=== PATIENT | female | born 1985 | race Two or more races ===

== ENCOUNTER 2020-12-06 15:00 | Outpatient (RCR) | payer MEDICAID, SELFPAY | END 2021-01-17 13:45 | disposition home or self-care (01) | LOC: HO.PT 15:00 | PROVIDERS: PCP Registered Nurse; Visit Provider Nurse Practitioner Primary Care | DX: M54.5 Low back pain (principal) | CPT/HCPCS: 97110; 97140; 97161 ==

== ENCOUNTER 2020-12-24 12:24 | Emergency (ER) | payer OTHER, MEDICAID, SELFPAY ==
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
[2020-12-24 14:21] VITALS: BP 108/51; PULSE 76; RESP 18; TEMP 37; O2SAT 100; BMI 17.6
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
== END 2020-12-24 16:41 | disposition home or self-care (01) ==
PROVIDERS: Emergency Provider Emergency Medicine; PCP Registered Nurse
DX: S29.011A Strain of muscle and tendon of front wall of thorax, initial encounter (principal); S46.911A Strain of unspecified muscle, fascia and tendon at shoulder and upper arm level, right arm, initial encounter; S39.012A Strain of muscle, fascia and tendon of lower back, initial encounter; V43.52XA Car driver injured in collision with other type car in traffic accident, initial encounter; Y93.89 Activity, other specified; Y92.414 Local residential or business street as the place of occurrence of the external cause; Y99.9 Unspecified external cause status
CPT/HCPCS: 71101; 72110; 73030; 99283

== ENCOUNTER 2021-03-01 09:34 | Outpatient (REF) | payer MEDICAID, SELFPAY | END 2021-03-01 09:35 | disposition home or self-care (01) | LOC: HO.LAB 09:34 | PROVIDERS: Visit Provider Internal Medicine | DX: Z20.822 Contact with and (suspected) exposure to COVID-19 (principal) | CPT/HCPCS: C9803; U0003; U0005 ==

== ENCOUNTER 2021-03-11 09:18 | Outpatient (REF) | payer MEDICAID, SELFPAY | END 2021-03-11 09:19 | disposition home or self-care (01) | LOC: HO.LAB 09:18 | PROVIDERS: Visit Provider Internal Medicine | DX: Z20.822 Contact with and (suspected) exposure to COVID-19 (principal) | CPT/HCPCS: C9803; U0003; U0005 ==

== ENCOUNTER 2021-03-19 08:39 | Outpatient (REF) | payer MEDICAID, SELFPAY ==
[2021-03-19 09:07] LABS: COVID-19 Test Negative (Negative); IDNOW Serial# 55D5AD1C
== END 2021-03-19 08:40 | disposition home or self-care (01) ==
LOC: HO.LAB 08:39
PROVIDERS: Visit Provider Internal Medicine
DX: Z20.822 Contact with and (suspected) exposure to COVID-19 (principal)
CPT/HCPCS: 36415; 87635; C9803

== ENCOUNTER 2021-05-01 06:12 | Outpatient (REF) | payer MEDICAID, SELFPAY ==
[2021-05-01 08:12] LABS: Influenza A PCR NEGATIVE (Negative); Influenza B PCR NEGATIVE (Negative); Resp Syncy Virus RNA Qual PCR NEGATIVE (Negative); SARS COV2 PCR INHOUSE NEGATIVE (Negative)
== END 2021-05-01 06:13 | disposition home or self-care (01) ==
LOC: HO.LAB 06:12
PROVIDERS: Visit Provider Internal Medicine
DX: Z20.822 Contact with and (suspected) exposure to COVID-19 (principal)
CPT/HCPCS: 0241U; 36415

== ENCOUNTER 2021-05-17 10:01 | Emergency (ER) | payer MEDICAID, SELFPAY ==
[2021-05-17] VITALS (7 sets, daily range): BP systolic 80–97; BP diastolic 38–56; PULSE 60–76; RESP 16–18; TEMP 36.7–37.1; O2SAT 98–100; BMI 17.2
--- NOTE | 2021-05-17 10:59 | PC.NURSE ---
pt talking on her cell phone, acknowledged nursing staff and continued talking on her phone. Will reapproach pt for assessment when she has completed her call.
--- NOTE | 2021-05-17 11:55 | ED_ITS ---
HPI - General Adult General Chief complaint: General Medical Stated complaint: hypotension Time Seen by Provider: 05/17/21 11:13 Source: patient Mode of arrival: ambulatory Limitations: no limitations History of Present Illness HPI narrative: 36 y/o female with history of anemia presenting to the ER for evaluation of hypotension. She reports a history of low blood pressure, especially when she was with her 3rd child 2 years ago. She is not on any medication for it. She is usually asymptomatic. She had a physical exam yesterday for work and her BP was noted to be low x3. They recommended she see her doctor. Doctor checked orthostatics that were positive so they sent her to the ER. Patient reports some headache and dizziness today that she attributes to not eating yet today. No SOB, chest pain. She has been taking iron 2x per week for anemia and does not know her baseline hemoglobin. She does not get her menses due to control. Denies chance of . complaint: hypotension Onset (ago): day(s) Location: head Radiation: non-radiation Severity: mild Severity scale (1-10): 4 Relieving factors: rest Exacerbating factors: movement Associated symptoms: headaches Treatments prior to arrival: none Related Data Previous Rx's Medication Instructions Recorded acetaminophen-codeine 1 tab PO Q8H PRN #10 tab 12/24/20 cyclobenzaprine 10 mg PO TID PRN #10 tab 12/24/20 ibuprofen 800 mg PO Q8H PRN #14 tab 12/24/20 lidocaine [Lidoderm] 1 patch TOPICAL DAILY #15 ea 12/24/20 Allergies Allergy/AdvReac Type Severity Reaction Status Date / Time No Known Allergies Allergy Verified 12/24/20 14:20 [No Known Allergies*] Review of Systems Review of Systems: Constitutional: No Fever, No Chills ENT/Mouth: No sore throat, No Rhinorrhea, No Swallowing Difficulty Cardiovascular: No Chest Pain, No SOB, No Orthopnea, No Edema Respiratory: No Cough, No Sputum, No Wheezing, No dyspnea Gastrointestinal: No Nausea, No Vomiting, No Diarrhea, No abdominal Pain, No Hematochezia, No Melena Genitourinary: No Dysuria, No Urinary Frequency, No Hematuria Musculoskeletal: No joint pain, + Myalgias Skin: No Skin Lesions, No rash Neuro: No Weakness, No Numbness, + Dizziness, + Headache Psych: + Anxiety/Panic, No Depression Heme/Lymph: No Bruising, No Lymphadenopathy Endocrine: No Polyuria, No Polydipsia PMFSH Past Medical History Attestation statement: The following information was validated with the patient. Medical History Anemia Hypoglycemia Social History Social History Alcohol intake: never Patient Tobacco Use Status: Never used Tobacco Use of substances other than those prescribed or required for medical reasons: No Advance Directives: Yes Advance Directives Information Provided: Yes Advance Directives on File: No Physical Exam Vital Signs: Vital Signs: Last Vital Signs Temp 98.8 F 05/17/21 13:32 Pulse 61 05/17/21 15:04 Resp 18 05/17/21 15:04 BP 91/47 L 05/17/21 15:04 Pulse Ox 100 05/17/21 15:04 Body Mass Index 17.2 Appearance: Alert. Oriented X3. No acute distress. Eyes: Pupils equal, round and reactive to light. ENT: Pharynx normal. Neck: Normal inspection. Neck supple. CVS: Normal heart rate and rhythm. Pulses normal. Respiratory: No respiratory distress. Breath sounds normal. Abdomen: Flat, thin, Soft and nontender. +BS x4 Skin: Skin warm and dry. Normal skin color. Normal skin turgor. No rashes. Extremities: No lower extremity edema. Neuro: Oriented X 3. No motor deficit. No sensory deficit. Course Course Course Narrative: 36 y/o female with history of anemia presenting with orthostatic hypotension. Reported history of hypotension. Will repeat orthostatics here and check basic labs to r/o anemia. She appears well. Low clinical suspicion for sepsis at this time. Reevaluation(s) Reevaluation #1: Orthostatic VS are negative. Labs pending. Reevaluation #2: Normal lab workup. UA normal. BP remains soft with MAP 61-63. No signs of sepsis at this time. She feels tired but otherwise well. Received 1 L IVF, will repeat VS. Reevaluation #3: BP 91/47 with MAP 61. She is AAO X4, non-focal and would like to be discharged. Her low blood pressure is likely chronic. Not septic. Not orthostatic. No dizziness. She is stable for discharge with plan to follow up with her doctor next week. Medical Decision Making Lab Data Result diagrams: 05/17/21 12:19 05/17/21 12:19 Labs: Lab Results 05/17/21 05/17/21 05/17/21 Range/Units 12:19 12:19 12:19 WBC 6.6 (4.8-10.8) X10*3/uL RBC 4.38 (4.20-5.50) X10*6/uL Hgb 11.7 L (12.0-16.0) g/dl Hct 37.1 (37-47) % MCV 84.7 (80-98) fL MCH 26.7 L (27.0-33.0) pg MCHC 31.5 (31.0-35.0) g/dl RDW 13.2 (11.0-16.0) % Plt Count 217 (160-400) X10*3/uL MPV 10.8 (9.4-12.3) fL Immature Gran % (Auto) 0.0 (0.0-0.4) % Neut % (Auto) 51.4 (45-73) % Lymph % (Auto) 41.2 H (20-40) % [place] % (Auto) 4.2 (2-11) % Eos % (Auto) 2.3 (0-4) % Baso % (Auto) 0.9 (0-2) % Lymph # (Auto) 2.7 (1.2-4.9) X10*3/uL [place] # (Auto) 0.3 (0.1-1.2) X10*3/uL Eos # (Auto) 0.2 (0.0-0.4) X10*3/uL Baso # (Auto) 0.1 (0.0-0.2) X10*3/uL Abs Immat Gran (auto) 0.00 (0.00-0.03) X10*3/uL Absolute Neuts (auto) 3.4 (2.0-8.3) X10*3/uL Absolute Nucleated RBC 0.000 (0.0-0.012) X10*3/uL Nucleated RBC % (auto) 0.0 (0.0-0.2) /100WBC Sodium 141 (135-145) mmol/L Potassium 4.1 (3.3-5.1) mmol/L Chloride 108 (96-108) mmol/L Carbon Dioxide 27 (22-29) mmol/L Anion Gap 10 L (12-20) BUN 11 (9-16) mg/dL Creatinine 0.78 (0.5-1.4) mg/dL Estim Creat Clear Calc 72.1 Estimated GFR > 60 Random Glucose 99 (60-115) mg/dL Lactic Acid 0.8 (0.5-2.0) mmol/L Calcium 9.5 (8.4-10.2) mg/dL Urine Color Urine Appearance Urine pH (5.0-8.0) Ur Specific [place] (1.005-1.025) Urine Protein (NEG-TRACE) MG/DL Urine Glucose (UA) (NEG) MG/DL Urine Ketones (NEG) MG/DL Urine Blood (NEG) Urine Nitrite (NEG) Ur Leukocyte Esterase (NEG) Urine Test (NEGATIVE) 05/17/21 05/17/21 Range/Units 14:11 14:11 WBC (4.8-10.8) X10*3/uL RBC (4.20-5.50) X10*6/uL Hgb (12.0-16.0) g/dl Hct (37-47) % MCV (80-98) fL MCH (27.0-33.0) pg MCHC (31.0-35.0) g/dl RDW (11.0-16.0) % Plt Count (160-400) X10*3/uL MPV (9.4-12.3) fL Immature Gran % (Auto) (0.0-0.4) % Neut % (Auto) (45-73) % Lymph % (Auto) (20-40) % [place] % (Auto) (2-11) % Eos % (Auto) (0-4) % Baso % (Auto) (0-2) % Lymph # (Auto) (1.2-4.9) X10*3/uL [place] # (Auto) (0.1-1.2) X10*3/uL Eos # (Auto) (0.0-0.4) X10*3/uL Baso # (Auto) (0.0-0.2) X10*3/uL Abs Immat Gran (auto) (0.00-0.03) X10*3/uL Absolute Neuts (auto) (2.0-8.3) X10*3/uL Absolute Nucleated RBC (0.0-0.012) X10*3/uL Nucleated RBC % (auto) (0.0-0.2) /100WBC Sodium (135-145) mmol/L Potassium (3.3-5.1) mmol/L Chloride (96-108) mmol/L Carbon Dioxide (22-29) mmol/L Anion Gap (12-20) BUN (9-16) mg/dL Creatinine (0.5-1.4) mg/dL Estim Creat Clear Calc Estimated GFR Random Glucose (60-115) mg/dL Lactic Acid (0.5-2.0) mmol/L Calcium (8.4-10.2) mg/dL Urine Color YELLOW Urine Appearance HAZY Urine pH 6.0 (5.0-8.0) Ur Specific [place] 1.025 (1.005-1.025) Urine Protein NEG (NEG-TRACE) MG/DL Urine Glucose (UA) NEG (NEG) MG/DL Urine Ketones NEG (NEG) MG/DL Urine Blood NEG (NEG) Urine Nitrite NEG (NEG) Ur Leukocyte Esterase NEG (NEG) Urine Test NEGATIVE (NEGATIVE) Discharge Plan Discharge Clinical Impression: Chronic hypotension Patient Disposition: Home, Self-Care Instructions: Hypotension (ED) Additional Instructions: Your lab workup today was normal. No signs of infection. Recommend following up with your doctor next week. If you develop new or worsening symptoms call 911 or come back to the ER for further evaluation. Prescriptions: No Action cyclobenzaprine 10 mg tablet 10 mg PO TID PRN (Reason: muscle spasm) Qty: 10 RF: 0 ibuprofen 800 mg tablet 800 mg PO Q8H PRN (Reason: pain) Qty: 14 RF: 0 acetaminophen-codeine 300-30 mg tablet 1 tab PO Q8H PRN (Reason: pain) Qty: 10 RF: 0 lidocaine [Lidoderm] 5 % adhesive patch,medicated 1 patch topical DAILY Qty: 15 RF: 0 Stand Alone Forms: Work/School Release
[2021-05-17] MEDS: 0.9 % Sodium Chloride 1,000 ML 999 ML IVCONT (12:21)
[2021-05-17 12:26] LABS: MANUAL DIFF FLAG NO
[2021-05-17 12:34] LABS: Basophils Absolute Auto 0.1 X10*3/uL (0.0-0.2); Basophils Percent Auto 0.9 % (0-2); Eosinophils Absolute Auto 0.2 X10*3/uL (0.0-0.4); Eosinophils Percent Auto 2.3 % (0-4); Hematocrit 37.1 % (37-47); Hemoglobin 11.7 g/dl (12.0-16.0); Lymphocytes Absolute Auto 2.7 X10*3/uL (1.2-4.9); Lymphocytes Percent Auto 41.2 % (20-40); Mean Corpuscular HGB Conc 31.5 g/dl (31.0-35.0); Mean Corpuscular Hemoglobin 26.7 pg (27.0-33.0); Mean Corpuscular Volume 84.7 fL (80-98); Mean Platelet Volume 10.8 fL (9.4-12.3); Monocytes Absolute Auto 0.3 X10*3/uL (0.1-1.2); Monocytes Percent Auto 4.2 % (2-11); Neutrophils Absolute Auto 3.4 X10*3/uL (2.0-8.3); Neutrophils Percent Auto 51.4 % (45-73); Platelet Count 217 X10*3/uL (160-400); Red Blood Count 4.38 X10*6/uL (4.20-5.50); Red Cell Distribution Width 13.2 % (11.0-16.0); White Blood Count 6.6 X10*3/uL (4.8-10.8)
[2021-05-17 12:48] LABS: Lactic Acid 0.8 mmol/L (0.5-2.0)
[2021-05-17 12:52] LABS: Anion Gap 10 (12-20); Blood Urea Nitrogen 11 mg/dL (9-16); Calcium 9.5 mg/dL (8.4-10.2); Carbon Dioxide 27 mmol/L (22-29); Chloride 108 mmol/L (96-108); Creatinine Clr Calc Pharmacy 72.1; Estimated Glomerular Filt Rate > 60; Glucose Random 99 mg/dL (60-115); Potassium 4.1 mmol/L (3.3-5.1); Sodium 141 mmol/L (135-145)
[2021-05-17 14:25] LABS: Glucose Urine UA NEG (NEG); Leukocyte Esterase Urine NEG (NEG); Nitrite Urine NEG (NEG); Specific Gravity - Urine 1.025 (1.005-1.025); Urine Blood NEG (NEG); Urine Ketones NEG (NEG); Urine Protein NEG (NEG-TRACE)
[2021-05-17 14:27] LABS: Appearance Urine HAZY; Color Urine YELLOW; UPreg QC Valid YES; Urine Pregnancy NEGATIVE (NEGATIVE)
== END 2021-05-17 16:06 | disposition home or self-care (01) ==
PROVIDERS: Physician Assistant; Emergency Provider Emergency Medicine Emergency Medical Services; PCP Registered Nurse
DX: I95.89 Other hypotension (principal); D64.9 Anemia, unspecified
CPT/HCPCS: 36415; 80048; 81003; 81025; 83605; 85025; 96360; 99284

== ENCOUNTER 2021-08-05 09:54 | Outpatient (REF) | payer MEDICAID, SELFPAY | END 2021-08-05 09:55 | disposition home or self-care (01) | LOC: HO.LAB 09:54 | PROVIDERS: Visit Provider Internal Medicine | DX: Z20.822 Contact with and (suspected) exposure to COVID-19 (principal) | CPT/HCPCS: C9803; U0003; U0005 ==

== ENCOUNTER 2022-04-23 12:10 | Outpatient (REF) | payer MEDICAID, SELFPAY | END 2022-04-23 12:11 | disposition home or self-care (01) | LOC: HO.LAB 12:10 | PROVIDERS: Visit Provider Internal Medicine | DX: Z13.89 Encounter for screening for other disorder (principal) ==

== ENCOUNTER 2022-12-05 11:06 | Outpatient (REF) | payer MEDICAID, SELFPAY ==
--- NOTE | ~2022-12-05 | XR_ITS ---
EXAMINATION: XR FOOT, RIGHT CLINICAL INFORMATION: Pain COMPARISON: None TECHNIQUE: AP, lateral, and oblique views of the right foot. FINDINGS: The bones and soft tissues are normal. No fracture. Alignment is anatomic. Joint spaces are maintained. XR/XR foot RT min 3V IMPRESSION: Normal right foot.
== END 2022-12-05 11:07 | disposition home or self-care (01) ==
LOC: HO.HOSX 11:06
PROVIDERS: Visit Provider Physician Assistant
DX: S93.601A Unspecified sprain of right foot, initial encounter (principal)
CPT/HCPCS: 73630; 99202

== ENCOUNTER 2023-06-25 09:06 | Outpatient (REF) | payer MEDICAID, SELFPAY ==
[2023-06-28 04:43] LABS: TS Negative Control Passed; TS Panel A 0; TS Panel B 0; TS Positive Control Passed; TSpotTB Negative (Negative)
== END 2023-06-25 09:07 | disposition home or self-care (01) ==
LOC: HO.HHCL 09:06
PROVIDERS: Visit Provider Nurse Practitioner Primary Care
DX: Z11.1 Encounter for screening for respiratory tuberculosis (principal)
CPT/HCPCS: 36415; 86481

== ENCOUNTER 2024-06-30 10:50 | Outpatient (REF) | payer MEDICAID, SELFPAY ==
[2024-06-30 15:13] LABS: TSH reflex Free T4 0.54 uIU/mL (0.32-4.0)
[2024-07-01 15:23] LABS: Transglutaminase Ab IgG <1.0 U/mL; Transglutaminase IgA <1.0 U/mL
[2024-07-02 13:43] LABS: H Pylori Breath Test Positive (Negative)
== END 2024-06-30 10:51 | disposition home or self-care (01) ==
LOC: HO.LAB 10:50
PROVIDERS: PCP Nurse Practitioner Primary Care; Visit Provider Nurse Practitioner
DX: R63.4 Abnormal weight loss (principal); R11.2 Nausea with vomiting, unspecified; R10.13 Epigastric pain; R19.7 Diarrhea, unspecified
CPT/HCPCS: 36415; 83013; 84443; 86003; 86364; 99212

== ENCOUNTER 2024-06-30 10:50 | Outpatient (AMB) | payer MEDICAID, SELFPAY ==
--- NOTE | 2024-06-30 10:57 | A.OFFVIS_ITS ---
Vital Signs 3 06/30/24 10:58 Height 5 ft 2 in Weight 108 lb 0.424 oz BMI 19.8 BP 80/53 L Blood Pressure Location Rt brachial Position Sitting Pulse 68 Intake Visit Reasons: Epigastric Pain - JM Pt. Intake Note: New patient in office today as a new patient for epigastric pain, nausea, and weight loss. CC: Patient c/o nausea, upset stomach, diarrhea that is slimy and a mustard color, epigastric pain, vomiting just saliva . Onset of symptoms was in April. She also c/o acid reflux and weight loss. She states that she was 140 lb back in April. She states that this is affecting her a lot because she is hypoglycemic. 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 She is referred by [facility] and our emergency department. PMX Chorioretinal scar Smoker GERD * SURGICAL HISTORY D&C * ALLERGIES:NKDA * This Week In LABS: No labs Since 2020 in our system [facility] labs from 06/04 are all fairly unremarkable. CT scan of the abdomen pelvis likewise is unremarkable. TODAY'S VISIT Onset in April of this year after she returned from vacation to [place]; with pain in the epigastrum and a subjective swelling of this area. The pain does not move. She will have nausea and post prandial diarrhea with mustard colored stools with mucus. She has lost about 40 lbs. She saw her PCP and she was tested for HP, she presented to the [facility] [place] [place] ER many times and they said it might be an ulcer. She also has early satiety after just a couple of spoonfuls. NO medication changes, no other illness, brother with HP recently, maternal aunt CRC unknown polyps in mother, Nephew allergic to corn. Reviewed CT and labs from [facility] [place] [place], no stool samples, no HP, First I think we need to exclude an acute infection and also do some extra labs to see if inflammatory bowel diseases at play and also test for food allergies. Once these more common causes have been excluded then we can consider if we need more in-depth testing. For now I think we should go ahead and get her in line for an EGD and colonoscopy since this takes quite a while get scheduled in the current climate. We can always consider cancelling them if we discover another reversible cause. She is quite agreeable to this. She is relatively naive to anesthesia and sedation. She denies any cardiac or respiratory problems. There are no known infectious disease problems. Return office visit in 6 weeks to go over labs and consider treating this as functional if the preliminary labs and testing seem to be coming back as normal. [facility] Medical History (Updated 06/30/24 @ 11:32 by LUISA Gregory) Hypoglycemia Anemia Surgical History (Updated 06/30/24 @ 11:05 by BRAYDEN Holder) H/O dilation and curettage Family History (Updated 06/30/24 @ 11:07 by BRAYDEN Holder) Maternal Aunt Colon cancer Sister Thyroid cancer Family/Other Breast cancer Sister Anemia Social History (Updated 06/30/24 @ 11:08 by BRAYDEN Holder) Alcohol intake: never Patient Tobacco Use Status: Current everyday Tobacco user Current occupational status: employed Review of Systems Const Denies fatigue, Denies fever(s), Denies night sweats, Reports poor appetite and Reports weight loss Eyes Details: glasses Reports requires corrective lenses ENT Reports Normal hearing present, Denies dental pain, Denies dysphagia, Denies hearing loss, Denies mouth pain, Denies odynophagia, Denies throat swelling, Denies tongue swelling and Reports other (Dentition adequate) Card Reports no additional complaints Resp Reports no additional complaints GI Details: Reports abdominal pain, Denies melena, Denies bloating, Denies hematochezia, Denies constipation, Reports GI cramping, Denies dysphagia, Denies excessive flatus, Denies early satiety, Denies heartburn, Reports diarrhea, Reports nausea, Denies odynophagia, Denies vomiting and Denies hematemesis Skin/Breast Denies pruritus, Denies lesions, Denies rash and Denies jaundice Neuro Reports Normal hearing present and Denies Abnormal speech present Endo Denies fatigue Aller/Immun Denies throat swelling and Denies tongue swelling Physical Exam Vital Signs: Last Vital Signs Pulse 68 06/30/24 10:58 BP 80/53 L 06/30/24 10:58 BMI result Body Mass Index 19.8 Const General: cooperative, no acute distress, well developed and well groomed Nutritional Appearance: well nourished and thin Orientation/consciousness: oriented to person, oriented to place and oriented to time Limitations: language barrier HEENT Head: Yes normocephalic and Yes atraumatic Eyes General: appearance normal, both eyes and all related structures Pupils: Equal, round and reactive pupils present Neck Neck: Yes normal visual inspection and Yes no lymphadenopathy Thyroid: Thyroid normal Resp Effort & Inspection: normal respiratory effort and able to speak in complete sentences Auscultation: clear to auscultation bilaterally Cardio Rate: regular rate Rhythm: regular rhythm Heart sounds: Normal, physiologic split S2 sound present Peripheral pulses: radial pulses present and posterior tibial pulses present GI Inspection: No distended and No Abdominal panniculus present Palpation (GI): Soft to palpation, Tenderness to palpation present (GI) in the epigastrum and periumbilically, no guarding, not rigid and No hepatosplenomegaly present Percussion: Yes normal to percussion Auscultation: Hyperactive bowel sounds present (Extremely hyperactive with some high-pitched sounds in the left upper quadr) Rectal Exam - Female: deferred Abdomen image: 2 1. Belly button ring Skin General skin exam: no rashes or lesions noted, turgor normal, skin not dry, no jaundice, No spider nevi and no striae Rashes: no rashes Nails: normal Neuro General: oriented to person, oriented to place and oriented to time Cranial nerves: Yes Equal, round and reactive pupils present and Yes Normal hearing present Speech: No Abnormal speech present Extrem General: Yes normal to inspection, No clubbing, No cyanosis and No edema Psych Appearance: grossly normal and well kempt Mental Status: mental status grossly normal Speech and movement: Normal speech and movement present Affect: normal affect Attitude: cooperative Thought process: Normal thought process present and not confabulating Thought content: Normal thought content present Insight: Limited insight present (Psych) Judgement: Limited judgement present (Psych) Assessment & Plan Assessment & Plan (1) Abnormal weight loss: Code(s): R63.4 - Abnormal weight loss Category: Medical (2) Nausea and vomiting: Code(s): R11.2 - Nausea with vomiting, unspecified Category: Medical (3) Epigastric pain: Code(s): R10.13 - Epigastric pain Category: Medical (4) Diarrhea: Code(s): R19.7 - Diarrhea, unspecified Category: Medical Plan Onset in April of this year after she returned from vacation to [place]; with pain in the epigastrum and a subjective swelling of this area. The pain does not move. She will have nausea and post prandial diarrhea with mustard colored stools with mucus. She has lost about 40 lbs. The pain in her epigastrium ranges from 7- 10/10 and never completely resolves whether her stomach is full or empty. With this it is difficult for her to really relate any exacerbating or remitting features. She describes the pain as a stretching and sometimes a twisting pain but it never moves. She denies any excessive regurgitation or burning. She saw her PCP and she was tested for HP, she presented to the [facility] [place] [place] ER many times and they said it might be an ulcer. She also has early satiety after just a couple of spoonfuls. NO medication changes, no other illness, brother with HP recently, maternal aunt CRC unknown polyps in mother, Nephew allergic to corn. Reviewed CT and labs from [facility] [place] [place], no stool samples, no HP, First I think we need to exclude an acute infection and also do some extra labs to see if inflammatory bowel diseases at play and also test for food allergies. Once these more common causes have been excluded then we can consider if we need more in-depth testing. For now I think we should go ahead and get her in line for an EGD and colonoscopy since this takes quite a while get scheduled in the current climate. We can always consider cancelling them if we discover another reversible cause. She is quite agreeable to this. She is relatively naive to anesthesia and sedation. She denies any cardiac or respiratory problems. There are no known infectious disease problems. Return office visit in 6 weeks to go over labs and consider treating this as functional if the preliminary labs and testing seem to be coming back as normal. Orders: Orders 2 C Reactive Protein Today R10.13 - Epigastric pain, R11.2 - Nausea with vomiting, unspecified, R19.7 - Diarrhea, unspecified, R63.4 - Abnormal weight loss CDiff Gene PCR Today R10.13 - Epigastric pain, R11.2 - Nausea with vomiting, unspecified, R19.7 - Diarrhea, unspecified, R63.4 - Abnormal weight loss GI Panel Today R10.13 - Epigastric pain, R11.2 - Nausea with vomiting, unspecified, R19.7 - Diarrhea, unspecified, R63.4 - Abnormal weight loss TSH reflex Free T4 Today R10.13 - Epigastric pain, R11.2 - Nausea with vomiting, unspecified, R19.7 - Diarrhea, unspecified, R63.4 - Abnormal weight loss Rast Allergen Today R10.13 - Epigastric pain, R11.2 - Nausea with vomiting, unspecified, R19.7 - Diarrhea, unspecified, R63.4 - Abnormal weight loss Calprotectin, Fecal Today R10.13 - Epigastric pain, R11.2 - Nausea with vomiting, unspecified, R19.7 - Diarrhea, unspecified, R63.4 - Abnormal weight loss EGD/[place] Combo - GI Use Only Today R10.13 - Epigastric pain, R11.2 - Nausea with vomiting, unspecified, R19.7 - Diarrhea, unspecified, R63.4 - Abnormal weight loss H Pylori Breath Test Today R10.13 - Epigastric pain, R11.2 - Nausea with vomiting, unspecified, R19.7 - Diarrhea, unspecified, R63.4 - Abnormal weight loss Transglutaminase IgA Today R10.13 - Epigastric pain, R11.2 - Nausea with vomiting, unspecified, R19.7 - Diarrhea, unspecified, R63.4 - Abnormal weight loss Transglutaminase Ab IgG Today R10.13 - Epigastric pain, R11.2 - Nausea with vomiting, unspecified, R19.7 - Diarrhea, unspecified, R63.4 - Abnormal weight loss Medications: New 2 polyethylene glycol 3350 (Miralax) 238 grams PO ONCE 238 grams 0RF colonoscopy prep 1 day Coding Level of Care Code New Pt Level 3 (71397) Diagnoses Abnormal weight loss R63.4 Nausea and vomiting R11.2 Epigastric pain R10.13 Diarrhea R19.7
[2024-06-30 10:58] VITALS: BP 80/53; PULSE 68; BMI 19.8
== END 2024-06-30 12:27 | disposition home or self-care (01) ==
PROVIDERS: PCP Nurse Practitioner Primary Care; Visit Provider Nurse Practitioner
DX: R63.4 Abnormal weight loss (principal); R11.2 Nausea with vomiting, unspecified; R10.13 Epigastric pain; R19.7 Diarrhea, unspecified
CPT/HCPCS: 99203

== ENCOUNTER 2025-02-09 10:55 | Outpatient (REF) | payer MEDICAID, SELFPAY ==
[2025-02-09 13:10] LABS: MANUAL DIFF FLAG NO
[2025-02-09 13:21] LABS: Basophils Absolute Auto 0.1 X10*3/uL (0.0-0.2); Basophils Percent Auto 1.2 % (0-2); Eosinophils Absolute Auto 0.1 X10*3/uL (0.0-0.4); Eosinophils Percent Auto 1.8 % (0-4); Hematocrit 36.2 % (37.0-47.0); Hemoglobin 11.7 g/dl (12.0-16.0); Imm Gran Abs Auto 0.02 X10*3/uL (0.00-0.03); Imm Gran Pct Auto 0.3 % (0.0-0.4); Lymphocytes Absolute Auto 2.6 X10*3/uL (1.2-4.9); Lymphocytes Percent Auto 34.5 % (20-40); Mean Corpuscular HGB Conc 32.3 g/dl (31.0-35.0); Mean Corpuscular Hemoglobin 26.7 pg (27.0-33.0); Mean Corpuscular Volume 82.6 fL (80.0-98.0); Mean Platelet Volume 11.6 fL (9.4-12.3); Monocytes Absolute Auto 0.3 X10*3/uL (0.1-1.2); Monocytes Percent Auto 4.4 % (2-11); Neutrophils Absolute Auto 4.3 x10*3/uL (2.0-8.3); Neutrophils Percent Auto 57.8 % (45-73); Platelet Count 229 X10*3/uL (160-400); Red Blood Count 4.38 X10*6/uL (4.20-5.50); Red Cell Distribution Width 13.8 % (11.0-16.0); White Blood Count 7.4 X10*3/uL (4.8-10.8)
[2025-02-09 13:35] LABS: Estimated Average Glucose 97 mg/dL
[2025-02-09 13:53] LABS: Anion Gap 11 (12-20); Blood Urea Nitrogen 11 mg/dL (9-16); Calcium 9.2 mg/dL (8.4-10.2); Carbon Dioxide 24 mmol/L (22-29); Chloride 110 mmol/L (96-108); Estimated Glomerular Filt Rate > 60; Glucose Random 60 mg/dL (60-115); Iron 123 mcg/dL (30-160); Percent Iron Saturation 43 % (15-50); Potassium 3.6 mmol/L (3.3-5.1); Sodium 141 mmol/L (135-145); Total Iron Binding Capacity 285 mcg/dL (228-428); Unsaturated Iron Binding 162 ug/dL
[2025-02-09 14:01] LABS: Ferritin 76 ng/mL (10-122); Insulin 2 uU/mL (2-29); TSH reflex Free T4 0.54 uIU/mL (0.32-4.0)
[2025-02-10 08:32] LABS: HBS Num1 > 1000.00 mIU/mL (0-7.99); HBsAGNum1 0.38 S/CO (0.00-0.99); HIV AB/AG Nonreactive (Nonreactive); HIV Num 1 0.07 S/CO (0.00-0.99); Hepatitis A Antibody IgM 0.23 Index (0-0.79); Hepatitis B Core Antibody Nonreactive (Nonreactive); Hepatitis B Surface Antigen Negative (Negative); ~HepC Num1 0.26 S/CO (0.00-0.79); ~Hepatitis A Antibody IgM Nonreactive (Nonreactive); ~Hepatitis B Surface Antibody REACTIVE (Nonreactive); ~Hepatitis C Antibody Nonreactive (Nonreactive)
== END 2025-02-09 10:56 | disposition home or self-care (01) ==
LOC: HO.HHCL 10:55
PROVIDERS: Visit Provider Nurse Practitioner Primary Care
DX: D64.9 Anemia, unspecified (principal); E16.2 Hypoglycemia, unspecified; A64 Unspecified sexually transmitted disease; R63.4 Abnormal weight loss; R63.0 Anorexia; R53.83 Other fatigue
CPT/HCPCS: 36415; 80048; 82728; 83036; 83525; 83540; 84443; 85025; 86704; 86706; 86709; 86803; 87340; 87389

== ENCOUNTER 2025-05-12 15:09 | Outpatient (REF) | payer MEDICAID, SELFPAY ==
--- NOTE | ~2025-05-12 | US_ITS ---
EXAMINATION: US OBSTETRICAL ULTRASOUND CLINICAL INFORMATION: Lower abdominal pain and cramping, positive hCG test. COMPARISON: None available. LMP: Unknown.. TECHNIQUE: Ultrasound of the maternal pelvis is performed using transabdominal and transvaginal transducers. Transvaginal imaging is performed due to inadequate visualization transabdominally. M-mode Doppler is also performed. FINDINGS: The endometrial stripe measures 12 mm in thickness. There is a small cystic area in the fundal endometrium, without good dual decidual reaction. This measures 0.2 cm in diameter and could potentially be an early gestational sac. No yolk sac or pole seen. Estimated gestational age by mean sac diameter would be for 4 weeks and 4 days. The uterus is otherwise normal. There are no myometrial abnormalities. MATERNAL ADNEXA: The right maternal ovary measures 4.5 x 3.1 x 2.5 cm. There is a corpus luteal cyst measuring 2.8 x 2.4 x 2.4 cm. The left maternal ovary measures 2.7 x 1.2 x 1.1 cm. Normal sonographic appearance. There is no significant maternal adnexal mass. Trace free pelvic fluid, likely physiologic. US/US OB pelvic and transvaginal IMPRESSION: 1. Questionable tiny gestational sac versus nonspecific cystic area within the fundal endometrium measuring 0.2 cm, correlating with estimated gestational age of 4 weeks and 4 days. No definite pole or yolk sac visualized. Continued follow-up recommended. 2. Normal ovaries bilaterally. 3. No adnexal masses. 4. Trace free pelvic fluid, likely physiologic. Electronically signed by: Nazario Hines MD 05/12/2025 04:29 PM EDT
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
== END 2025-05-12 15:10 | disposition home or self-care (01) ==
LOC: HO.US 15:09
PROVIDERS: PCP Nurse Practitioner Primary Care; Visit Provider Nurse Practitioner
DX: O09.511 Supervision of elderly primigravida, first trimester (principal); Z3A.01 Less than 8 weeks gestation of pregnancy
CPT/HCPCS: 76801; 76817

== ENCOUNTER → 2025-05-12 15:14 | Outpatient (BNV) | payer MEDICAID, SELFPAY | PROVIDERS: PCP Nurse Practitioner Primary Care; Visit Provider Radiology Diagnostic Radiology | DX: O26.891 Other specified pregnancy related conditions, first trimester (principal) | CPT/HCPCS: 76801; 76817 ==

== ENCOUNTER 2025-05-16 12:25 | Outpatient (REF) | payer MEDICAID, SELFPAY ==
--- OUTSIDE RECORDS SUMMARY | 2025-05-16 13:21 | XMS_ITS | Clinical Summary ---
Author Organization [facility] Address [address] [place] [address] Care Team Providers Care Crayon Painter Name Role Phone Marcelino Monae MD Primary Care Provider [phone] Social History Tobacco Use Types Packs/Day Years Used Date Smoking Tobacco: Former Smokeless Tobacco: Never Alcohol Use Standard Drinks/Week Comments No 0 (1 standard drink = 0.6 oz pur e alcohol) Comments Unknown Sex and Gender Information Value Date Recorded Sex Assigned at Not on file Legal Sex Female 11:39 AM EST Gender Identity Not on file Sexual Orientation Not on file Obstetrics History Plan of Treatment Health Maintenance Due Date Last Done Comments DTaP,Tdap,and Td Vaccines (1 - Tdap) 2005 Hepatitis B Vaccines (1 of 3 - 19+ 3-dose series) 2005 Cervical Cancer Screening: P ap Smear 2007 Depression Screening 10/14/2022 HIV Screening 10/14/2022 Hepatitis C Screening 10/14/2022 Social Influencers of Health Screening 10/14/2022 COVID-19 Vaccine ( - 2023-2 5 season) 2024 Influenza Vaccine (Season Ended) 2025 HIB Vaccines Aged Out No longer eligi [...] on patient's age to complete this topic MMR Vaccines Aged Out No longer eligi ble based on patient's age to complete this topic Meningococcal ACWY Vaccine Aged Out N o longer eligible based on patient's age to complete this topic Meningococcal B Vaccine Aged Out No l onger eligible based on patient's age to complete this topic Pneumococcal Vaccine: Pediat rics (0 to 5 Years) and At-Risk Patients (6 to 64 Years) Aged Out No longer eligible b ased on patient's age to complete this topic RSV Immunization Patients Un cherise 20 months Aged Out No longer eligible b ased on patient's age to complete this topic Varicella Vaccines Aged Out No longer eligible based on patient's age to complete this topic Care Teams Crayon Painter Relationship Specialty Start Date End Date Marcelino Monae MD [address] [place] [phone] PCP - General Internal Medicine 03/12/18
--- OUTSIDE RECORDS SUMMARY | 2025-05-16 13:21 | XMS_ITS | Clinical Summary ---
Author Organization [facility] Address [address] [place] [address] Care Team Providers Care Paperhanger Contractor Name Role Phone John Doran MD Primary Care Provider [phone] Source Comments PLEASE NOTE, if this patient is a minor, it may be UNLAWFUL to discuss sensitive information that is contained in these records (such as FAMILY PLANNING, MENTAL HEALTH or SUBSTANCE ABUSE) with the minor patient's parent or other person without the patient's specific authorization.[facility] Allergies No known active allergies Medications mirtazapine (REMERON) 15 mg tabletIndications: Appetite impaired Take 1 Tablet by mouth nightly at bedtime 90 Tablet 5 Active norethindrone, contraceptive, (MICRONOR) 0.35 mg tabletIndications: Encounter for initial prescription of contraceptive pills,Abnormal uterine bleeding (AUB) Take 1 Tablet by mouth once daily for 84 days 84 Tablet 2 5 05/29/20 25 Active Active Problems No known active problems Encounters Date Type Department Care Team Description 03/09/2025 Interim Notes [address] [phone] John Doran MD 03/06/2025 Interim Notes [address] [phone] John Doran MD from Last 3 Months Immunizations Immunization Administration Dates Next Due Flu, Multi Dose 0.5 ML 09/26/2021,08/28/2016 MMR (MMR II/Priorix) 06/25/2023 PPD 06/20/2024 TDAP 09/16/2019 Social History Tobacco Use Types Packs/Day Years Used Date Smoking Tobacco: Never Assessed Social Connections Answer Date Recorded Connectedness 0 07/28/2024 Financial Resource Strain Answer Date R ecorded Financial Resource Strain 0 2022 Stress Answer Date Recorded Stress 0 08/04/2023 Physical Activity Answer Date Recorded Physical Activity 0 08/04/2023 Food Insecurity Answer Date Recorded Food 0 08/11/2024 Transportation Needs Answer Date Record ed Transportation 0 08/04/2023 Housing Stability Answer Date Recorded Housing 0 08/04/2023 Safety and Environment Answer Date Rosendo rded Safety 0 08/04/2023 Utilities Answer Date Recorded Utilities 0 08/04/2023 Employment Answer Date Recorded Stress 0 07/28/2024 Comments No Sex and Gender Information Value Date Recorded Sex Assigned at Female 11/29/2024 11:15 AM PST Legal Sex Female 4:16 AM PDT Gender Identity Female 11/29/2024 11:15 AM PST Sexual Orientation Straight 11/29/2024 11 :15 AM PST Last Filed Vital Signs Vital Sign Reading Time Taken Comments Blood Pressure 98/54 11/29/2024 1:06 PM EST Pulse 74 11/29/2024 1:06 PM EST Temperature 37 C (98.6 F) 11/29/2024 1:06 PM EST Respiratory Rate 16 11/29/2024 1:06 PM EST Oxygen Saturation 99% 11/29/2024 1:06 PM EST Inhaled Oxygen Concentration - - Weight 47.5 kg (104 lb 12.8 oz) 11/29/2024 1:06 PM EST Height 157.9 cm (5' 2.17 ) 11/29/2024 1:06 PM ES T Body Mass Index 19.07 11/29/2024 1:06 PM EST Plan of Treatment Health Maintenance Due Date Last Done Comments Anxiety Screening 1986 Diabetes Screening 1986 HPV Screening 1986 Hepatitis C Screening 1986 Tobacco Screening 1986 HIV Screening 2001 Relationship Safety Screening/Counseling 2001 Imm-Hepatitis B (1 of 3 - 19 + 3-dose series) 2005 [id number] ( season) 2024 01/13/2022, 01/02/2021, 12/12/2020 Alcohol and Drug Screen 11/16/2024 Depression Annual Screen 11/16/2024 Imm-Influenza (Season Ended) 2025 09/26/2021, 08/28/2016 Annual Wellness (Adult): Ind icated (All Coverage) 11/29/2025 11/29/2024 Hypertension Screening (#1) 11/29/2027 Pap Smear 11/29/2027 11/29/2024 Imm-DTaP/Tdap/Td (2 - Td or Tdap) 09/16/2029 019 Cervical Cancer Screening 11/29/2029 Pap + HPV 11/29/2029 11/29/2024 Cervical Ablation/Cold-Knife Conization Discontinued Cervical Cryotherapy Discontinued Colposcopy Discontinued Endometrial Biopsy Discontinued Excision/Leep Discontinued HPV Genotyping Discontinued Vaginal Pap Discontinued Vulvoscopy Discontinued Procedures Procedure Name Priority Date/Time Associated Diagnosis Comments THINPREP IMAGING PAP, HPV MRNA E6/E7 RFLEX HPV 16,18/45 CT/NG Routine 11/29/2024 4:02 PM EST Encounter for Papanicolaou smear of vagina as part of routine gynecological examination Encounter for screening for human papillomavirus (HPV) from Last 3 Months or Most Recently Relevant to Health Maintenance Results * THINPREP IMAGING PAP, HPV MRNA E6/E7 RFLEX HPV 16,18/45 CT/NG (11/29/2024 4:02 PM EST) CHLAMYDIA TRACHOMATIS RNA, TMA NOT DETECTED NOT DETECTED [facility] NEISSERIA GONORRHOEAE RNA, TMA NOT DETECTED NOT DETECTED [facility] COMMENT [facility] CLINICAL INFORMATION See Note [facility] Comment:Normal exam LMP See Note [facility] Comment:11/15/2024 PREV. PAP See Note [facility] Comment:NONE GIVEN PREV. BX See Note [facility] Comment:NONE GIVEN SOURCE See Note [facility] Comment:Cervix, Endocervix STATEMENT OF ADEQUACY See Note [facility] Comment: Satisfactory for evaluation. Endocervical/transformation zone component present. INTERPRETATION/RESU LT See Note [facility] Comment: Cytology Results: Negative for intraepithelial lesion or malignancy. INFECTION See Note [facility] Comment: Shift in vaginal finesse suggestive of bacterial vaginosis. COMMENT See Note [facility] Comment: This Pap test has been evaluated with computer assisted technology. 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 Cervical sources are required for HPV testing. If a vaginal source from a patient who has had a total hysterectomy with removal of cervix was submitted, please contact the testing laboratory for alternative testing options. For additional information, please refer to http://education.CityIN/faq/KZA234i1 (This link if provided for information/ educational purposes only.) Swab Cervix uteri structure / Unknown 11/29/2024 4:02 PM EST 11/30/2024 6:23 AM EST Narrative [facility] - 12/01/2024 3:07 PM EST SPLIT 11/29/2024 FROM [id number] EXPLANATORY NOTE: The Pap is a screening test for cervical cancer. It is not a diagnostic test and is subject to false negative and false positive results. It is most reliable when a satisfactory sample, regularly obtained, is submitted with relevant clinical findings and history, and when the Pap result is evaluated along with historic and current clinical information. The analytical performance characteristics of this assay, when used to test SurePath(TM) specimens have been determined by [employer].. The modifications have not been cleared or approved by the FDA. This assay has been validated pursuant to the CLIA regulations and is used for clinical purposes. For additional information, please refer to https://education.CityIN/faq/WDV153 (This link is being provided for information/ educational purposes only.) us John Doran MD LAB - PATHOLOGY AND CYTOLOGY AMB ULATORY Final Result [facility] [address] [address], [facility] [address] [phone] from Last 3 Months or Most Recently Relevant to Health Maintenance Insurance [employer] [facility] [employer] Member Subscriber Plan / Payer (Ef fective 2023-Present) Name:Dara Huynh Relation to Subscriber:Self Name:Dara Huynh Payer ID:[id number] Group ID:Not on file Type:Managed Medicaid Address: [place] [id number] Care Teams Paperhanger Contractor Relationship Specialty Start Date End Date John Doran MD [address] [place] [address] PCP - General Family Medicine, Physician 03/09/25
== END 2025-05-16 12:26 | disposition home or self-care (01) ==
LOC: HO.HHCL 12:25
PROVIDERS: Nurse Practitioner; PCP Nurse Practitioner Primary Care; Referring Provider Internal Medicine; Visit Provider Nurse Practitioner
DX: R10.13 Epigastric pain (principal); R11.2 Nausea with vomiting, unspecified; R19.7 Diarrhea, unspecified; Z32.01 Encounter for pregnancy test, result positive; R63.4 Abnormal weight loss
CPT/HCPCS: 36415; 84702; 86140

== ENCOUNTER 2025-06-06 16:08 | Outpatient (AMB) | payer MEDICAID, SELFPAY ==
--- NOTE | 2025-06-06 16:21 | A.OFFVIS_ITS ---
Vital Signs 06/06/25 16:22 Height 5 ft 2 in Weight 98 lb 12.273 oz BMI 18.1 BP 100/50 L Blood Pressure Location Rt brachial Position Sitting Pulse 85 Intake Visit Reasons: discuss colo Intake Note: Patient in office today in follow up abnormal weight loss. CC: Patient reports that she lost a previous and is currently again. Per patient she was advised by her PCP to follow up with GI for weight loss. She reports occasional epigastric pain. Per patient she used to weight around 130-135 but ever since she contracted H pylori last year she has not been able to gain her weight back. Core Winder Required: No Accompanied by: Self / Same As Patient Allergies No Known Allergies (No Known Allergies*) Allergy (Verified 06/30/24 11:03) HPI HPI discuss colo: Details: Assessment & Plan (1) Abnormal weight loss: Code(s): R63.4 - Abnormal weight loss Category: Medical (2) Nausea and vomiting: Code(s): R11.2 - Nausea with vomiting, unspecified Category: Medical (3) Epigastric pain: Code(s): R10.13 - Epigastric pain Category: Medical (4) Diarrhea: Code(s): R19.7 - Diarrhea, unspecified Category: Medical Plan Onset in April of this year after she returned from vacation to [place]; with pain in the epigastrum and a subjective swelling of this area. The pain does not move. She will have nausea and post prandial diarrhea with mustard colored stools with mucus. She has lost about 40 lbs. The pain in her epigastrium ranges from 7- 10/10 and never completely resolves whether her stomach is full or empty. With this it is difficult for her to really relate any exacerbating or remitting features. She describes the pain as a stretching and sometimes a twisting pain but it never moves. She denies any excessive regurgitation or burning. She saw her PCP and she was tested for HP, she presented to the [facility] many times and they said it might be an ulcer. She also has early satiety after just a couple of spoonfuls. NO medication changes, no other illness, brother with HP recently, maternal aunt CRC unknown polyps in mother, Nephew allergic to corn. Reviewed CT and labs from [facility], no stool samples, no HP, First I think we need to exclude an acute infection and also do some extra labs to see if inflammatory bowel diseases at play and also test for food allergies. Once these more common causes have been excluded then we can consider if we need more in-depth testing. For now I think we should go ahead and get her in line for an EGD and colonoscopy since this takes quite a while get scheduled in the current climate. We can always consider cancelling them if we discover another reversible cause. She is quite agreeable to this. She is relatively naive to anesthesia and sedation. She denies any cardiac or respiratory problems. There are no known infectious disease problems. Return office visit in 6 weeks to go over labs and consider treating this as functional if the preliminary labs and testing seem to be coming back as normal. Orders: Orders C Reactive Protein Today R10.13 - Epigastric pain, R11.2 - Nausea with vomiting, unspecified, R19.7 - Diarrhea, unspecified, R63.4 - Abnormal weight loss CDiff Gene PCR Today R10.13 - Epigastric pain, R11.2 - Nausea with vomiting, unspecified, R19.7 - Diarrhea, unspecified, R63.4 - Abnormal weight loss GI Panel Today R10.13 - Epigastric pain, R11.2 - Nausea with vomiting, unspecified, R19.7 - Diarrhea, unspecified, R63.4 - Abnormal weight loss TSH reflex Free T4 Today R10.13 - Epigastric pain, R11.2 - Nausea with vomiting, unspecified, R19.7 - Diarrhea, unspecified, R63.4 - Abnormal weight loss Rast Allergen Today R10.13 - Epigastric pain, R11.2 - Nausea with vomiting, unspecified, R19.7 - Diarrhea, unspecified, R63.4 - Abnormal weight loss Calprotectin, Fecal Today R10.13 - Epigastric pain, R11.2 - Nausea with vomiting, unspecified, R19.7 - Diarrhea, unspecified, R63.4 - Abnormal weight loss EGD/[place] Combo - GI Use Only Today R10.13 - Epigastric pain, R11.2 - Nausea with vomiting, unspecified, R19.7 - Diarrhea, unspecified, R63.4 - Abnormal weight loss H Pylori Breath Test Today R10.13 - Epigastric pain, R11.2 - Nausea with vomiting, unspecified, R19.7 - Diarrhea, unspecified, R63.4 - Abnormal weight loss Transglutaminase IgA Today R10.13 - Epigastric pain, R11.2 - Nausea with vomiting, unspecified, R19.7 - Diarrhea, unspecified, R63.4 - Abnormal weight loss Transglutaminase Ab IgG Today R10.13 - Epigastric pain, R11.2 - Nausea with vomiting, unspecified, R19.7 - Diarrhea, unspecified, R63.4 - Abnormal weight loss Medications: New polyethylene glycol 3350 (Miralax) 238 grams PO ONCE 238 grams 0RF colonoscopy prep 1 day Labs: Laboratory Tests 06/30/24 06/30/24 05/16/25 12:15 12:40 13:11 C-Reactive Protein < 0.10 Tiss Transglutamin IgG <1.0 Tiss Transglutamin IgA <1.0 H. pylori Breath Test Positive Laboratory Tests 02/09/25 05/16/25 11:03 13:11 WBC 7.4 Hgb 11.7 L Hct 36.2 L MCV 82.6 MCH 26.7 L Plt Count 229 Estimated GFR > 60 Beta HCG, Quant 2177 Stool studies were not obtained EGD/COLONOSCOPY BIOPSY CORRESPONDENCE On 02/14/25 @ 16:39 Nevaeh Orellana Wrote To Nevaeh Orellana Patient advised to have labs and stool samples done and she agreed to have them done. She was also notified about workload sent to schedulers for her EGD/colonoscopy. Nevaeh Orellana completed item. On 02/14/25 @ 08:55 Frances Disla Wrote To Nevaeh Orellana V can you please call Ms. 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 I have sent a workload to the schedulers for her EGD/colonoscopy, she does not need to wait until her next appointment with me. On 02/13/25 @ 13:12 Judy Goldberg Wrote To NaifFebruary Pt called about having double, she miscarried. She is scheduled for a f/u not sure if she needs OV first. She is schedule 04/18 TODAY'S VISIT Patient has been lost to follow-up since 06/2024, it appears that she became and this may have put off her being treated for H pylori and who procedures. HOWEVER HER BETA HCG IN MAY STILL QUITE ELEVATED. Her weight loss continues, as do her general GI systems of lack of appetite. She asks me to send a note to her PCP Juan Jose Kim that I can not really do anything until she is not . ADAM QUIÑONES. [facility] Medical History (Updated 07/05/24 @ 10:00 by LUISA Gregory) Hypoglycemia Anemia Surgical History (Updated 06/30/24 @ 11:05 by BRAYDEN Holder) H/O dilation and curettage Family History (Updated 06/30/24 @ 11:07 by BRAYDNE Holder) Maternal Aunt Colon cancer Sister Thyroid cancer Family/Other Breast cancer Sister Anemia Social History (Updated 06/30/24 @ 11:08 by BRAYDEN Holder) Alcohol intake: never Patient Tobacco Use Status: Current everyday Tobacco user Current occupational status: employed Review of Systems Const Denies fatigue, Denies fever(s), Denies night sweats, Reports poor appetite and Reports weight loss ENT Reports Normal hearing present, Denies dental pain, Denies dysphagia, Denies hearing loss, Denies mouth pain, Denies odynophagia, Denies throat swelling, Denies tongue swelling and Reports other (Dentition adequate) Card Reports no additional complaints Resp Reports no additional complaints GI Details: Denies abdominal pain, Denies melena, Denies bloating, Denies hematochezia, Denies constipation, Denies GI cramping, Denies dysphagia, Denies excessive flatus, Denies early satiety, Denies heartburn, Denies diarrhea, Reports nausea, Denies odynophagia, Reports vomiting and Denies hematemesis Musc Reports back pain Skin/Breast Denies pruritus, Denies lesions, Denies rash and Denies jaundice Neuro Reports Normal hearing present and Denies Abnormal speech present Endo Denies fatigue Aller/Immun Denies throat swelling and Denies tongue swelling Physical Exam Vital Signs: Last Vital Signs Pulse 85 06/06/25 16:22 BP 100/50 L 06/06/25 16:22 BMI result Body Mass Index 18.1 Const General: cooperative, no acute distress, well developed and well groomed Nutritional Appearance: average body habitus and well nourished Orientation/consciousness: oriented to person, oriented to place and oriented to time Limitations: No language barrier HEENT Head: Yes normocephalic and Yes atraumatic Eyes General: appearance normal, both eyes and all related structures Pupils: Equal, round and reactive pupils present Neck Neck: Yes normal visual inspection and Yes no lymphadenopathy Thyroid: Thyroid normal Resp Effort & Inspection: normal respiratory effort and able to speak in complete sentences Auscultation: clear to auscultation bilaterally Cardio Rate: regular rate Rhythm: regular rhythm Heart sounds: Normal, physiologic split S2 sound present Peripheral pulses: radial pulses present and posterior tibial pulses present GI Inspection: No distended and No Abdominal panniculus present Palpation (GI): Soft to palpation, nontender, no guarding, not rigid and No hepatosplenomegaly present Percussion: Yes normal to percussion Auscultation: normal bowel sounds Rectal Exam - Female: deferred Skin General skin exam: no rashes or lesions noted, turgor normal, skin not dry, no jaundice, No spider nevi and no striae Rashes: no rashes Nails: normal Neuro General: oriented to person, oriented to place and oriented to time Cranial nerves: Yes Equal, round and reactive pupils present and Yes Normal hearing present Speech: No Abnormal speech present Extrem General: Yes normal to inspection, No clubbing, No cyanosis and No edema Psych Appearance: grossly normal and well kempt Mental Status: mental status grossly normal Speech and movement: Normal speech and movement present Affect: normal affect Attitude: cooperative Thought process: Normal thought process present and not confabulating Thought content: Normal thought content present Insight: Good insight present (Psych) Judgement: Good judgement present (Psych) Assessment & Plan Assessment & Plan (1) H. pylori infection: Code(s): A04.8 - Other specified bacterial intestinal infections Category: Medical (2) Nausea and vomiting: Code(s): R11.2 - Nausea with vomiting, unspecified Category: Medical (3) Abnormal weight loss: Code(s): R63.4 - Abnormal weight loss Category: Medical Plan Patient has been lost to follow-up since 06/2024, it appears that she became and this may have put off her being treated for H pylori and who procedures. HOWEVER HER BETA HCG IN MAY STILL QUITE ELEVATED. Her weight loss continues, as do her general GI systems of lack of appetite. She asks me to send a note to her PCP Juan Jose Kim that I can not really do anything until she is not . ROV TBD Coding Level of Care Code Est Pt Level 3 (30121) Diagnoses H. pylori infection A04.8 Nausea and vomiting R11.2 Abnormal weight loss R63.4
[2025-06-06 16:22] VITALS: BP 100/50; PULSE 85; BMI 18.1
--- OUTSIDE RECORDS SUMMARY | 2025-06-06 16:39 | XMS_ITS | Clinical Summary ---
Author Organization [employer] Address [address] [facility] [address] [place] [address] Care Team Providers Care Oracle Consultant Name Role Phone Kristina Gould Primary Care Provider [phone] Allergies No known active allergies Medications nicotine (Nicoderm CQ) 21 MG/24HR patchIndications :Left upper quadrant abdominal pain Place 1 patch on the skin 1 (one) time each day at the same time. 30 patch 3 Active famotidine (Pepcid) 20 MG tabletIndication s:Left upper quadrant abdominal pain Take 1 tablet (20 mg) by mouth if needed in the morning and at bedtime for heartburn or indigestion. 30 tablet 3 Active ferrous sulfate (Fe Tabs) 325 (65 Fe) MG EC tabletIndication s:Anemia, unspecified type Take 1 tab every other day with Vit C. Do not crush, chew, or split. 90 tablet 1 4 Active Ascorbic Acid (vitamin C) 250 MG tabletIndication s:Anemia, unspecified type Take every other day with ferrous sulfate tablets. 90 tablet 1 4 Active famotidine (Pepcid) 20 MG tabletIndication s:Epigastric pain Take 1 tablet (20 mg) by mouth 2 times daily. 60 tablet 11 4 Active FREESTYLE LITE test stripIndications :Weight loss,Hypoglycemi a Use to test blood sugar 3 times daily 100 each 1 5 02/10/20 26 Active Lancets miscIndications: Weight loss,Hypoglycemi a Use to test blood sugar 3 times daily 100 each 5 Active Alcohol Swabs 70 % padsIndications: Weight loss,Hypoglycemi a Clean skin b/f taking blood sugar 100 each 5 Active Blood Glucose Monitoring Suppl (FreeStyle Charlotte Lite) w/Device kitIndications:W eight loss,Hypoglycemi a Use to test blood sugar 3 times daily 1 kit 5 Active Multiple Vitamin (multivitamin) tabletIndication s:Fatigue, unspecified type Take 1 tablet by mouth Once per day. 90 tablet 3 5 Active nicotine polacrilex (Nicorette) 2 MG gumIndications:C igarette smoker Chew 1 each (2 mg) if needed for smoking cessation. Every 1-[address] of cigarette, chew and park 100 each 5 5 Active naproxen (Naprosyn) 375 MG tabletIndication s:Acute coccygeal pain TAKE 1 TABLET BY MOUTH TWICE A DAY NEEDED FOR PAIN WITH FOOD 15 tablet 5 Active lidocaine (Lidoderm) 5 % patchIndications :Acute coccygeal pain APPLY 1 PATCH TOPICALLY ONCE PER DAY. REMOVE & DISCARD PATCH WITHIN 12 HOURS OR DIRECTED BY MD. 30 patch 5 Active Vit-Fe Fumarate-FA ( Plus) 27-1 MG tabletIndication s:Positive test One tablet by mouth daily 90 tablet 2 5 Active Active Problems Problem Noted Date Diagnosed Date [...] Encounters Date Type Department Care Team Description 06/06/2025 Telephone [facility] [address] [place] [address] Rupal Carpio NP 05/17/2025 Orders Only [facility] [address] [place] [phone] Kristina Gould ANP Early stage of (Primary Dx) 05/17/2025 Results Follow-Up [facility] [address] [place] [phone] Rupal Carpio NP US OB Pelvis with Transvaginal 05/12/2025 10:40 AM EDT Office Visit [facility] [address] [place] [address] Rupal Carpio NP Chronic bilateral low back pain with right-sided sciatica (Primary Dx); Positive test; Chronic coccygeal pain; Bilateral lower abdominal cramping; Weight loss 05/12/2025 Travel 04/24/2025 Refill [facility] [address] [place] [address] Krsitina Gould ANP Acute coccygeal pain 04/03/2025 10:45 AM EDT Office Visit [facility] [address] [place] [address] Armen Sharif DMD 03/23/2025 1:30 PM EDT Office Visit [facility] [address] [place] [phone] Kristina Gould ANP Acute coccygeal pain (Primary Dx) 03/23/2025 Travel 03/23/2025 Telephone [facility] [address] [place] [phone] Kristina Gould ANP Nurse Triage from Last 3 Months Immunizations Immunization Administration [...] Description 06/15/2025 2:00 PM EDT Office Visit [facility] [address] [place], [place] [phone] Kristina Gould ANP [address] [place] [address] Health Maintenance Due Date Last Done Comments Lipid Panel 1986 Alcohol/Substance Use Screening 1998 Family Planning (PISQ) 2001 HPV Vaccines (1 - 3-dose series) 2001 Hepatitis B Vaccines (1 of 3 [...] season) 2024 01/13/2022, 01/02/2021, 12/12/2020 Influenza Vaccine (#1) 2025 , 08/28/2016 Depression Screening 02/09/2026 02/09/2025, 02/09/2025 Disability [...] Procedure Name Priority Date/Time Associated Diagnosis Comments C-REACTIVE PROTEIN Routine 05/16/2025 1: 11 PM EDT HCG, TOTAL, QN Routine 05/16/2025 1:11 PM EDT Positive test US OB PELVIS TRANSVAGINAL Routine 05/12/2025 3:41 PM EDT POCT , URINE Routine 05/12/2025 10:54 AM [...] MINOR PROCEDURE Routine 04/03/2025 10:45 AM EDT HEPATITIS PANEL, GENERAL Routine 02/09/2025 11:05 AM EDT Screening examination for STI HIV 1/2 ANTIGEN/ANTIBODY, FOURTH GENERATION W/RFL Routine 02/09/2025 11:05 AM EDT Screening examination for STI PROPHYLAXIS - ADULT Routine 09/21/2020 1 2:00 AM EST INTRAORAL - COMPLETE SERIES OF RADIOGRAPHIC IMAGES Routine 08/28/2020 12:00 AM EDT COMPREHENSIVE ORAL EVALUATION - NEW OR ESTABLISHED PATIENT Routine 08/28/2020 12:00 AM EDT HM PAP/HPV Routine 05/04/2019 from Last 3 Months or Most Recently Relevant to Health Maintenance Results * C-reactive Protein (05/16/2025 1:11 PM EDT) C Reactive Protein <0.10 < or = 0.50 mg/dL [facility] 05/16/2025 1:11 PM EDT 05/16/2025 4:07 PM EDT Generic External Data Provider LAB BLOOD ORDERAB LES Final Result [facility] [address] [place] [phone] * hCG, Total, Quantitative (05/16/2025 1:11 PM EDT) HCG Quantitative 2,177 mIU/mL [facility] Comment:Weeks post LMP Appro ximate hCG(Last Menstrual Period) Range (mIU/ml)3 - 4 weeks 9 - 1304 - 5 weeks 75 - 2,6005 - 6 weeks 850 - 20,8006 - 7 weeks 4000 - 100,2007 - 12 weeks 11,500 - 289,96022 - 16 weeks 18,300 - 137,65845 - 29 weeks (2nd trimester) 1,400 - 53,11954 - 41 weeks (3rd trimester) 940 - 60,000The Oliveira B- hCG assay is used for the early detection ofpregnancy; it cannot be used to diagnose any conditionunrelated to . If a B-hCG level is not supportedby the clinical evidence, results should be confirmed by analternative method (qualitative urine hCG, for example). Blood Venous blood specimen / Unknown 05/16/2025 1:11 PM EDT 05/16/2025 4:07 PM EDT Rupal Carpio BLENDING MACHINE FEEDER LAB BLOOD ORDERABLES Final Resu lt [facility] [address] [place] [address] [phone] * US OB Pelvis with Transvaginal (05/12/2025 3:41 PM EDT) Anatomical Region Laterality Modality Pelvis Ultrasound 05/12/2025 3:41 PM EDT Narrative 05/12/2025 4:33 PM EDT [address] [address] Ultrasound Report Signed Patient: Dara Huynh MR #: [id number] : 1985 Acct:[id number] Age/Sex: 39 / F ADM Date: 05/12/25 Loc: .US Attending Dr: Rupal Carpio Ordering Physician: Rupal Carpio Date of Service: 05/12/25 Procedure(s): US OB pelvic and transvaginal Accession Number(s): [id number] cc: Rupal Carpio; KRISTINA GOULD BLENDING MACHINE FEEDER EXAMINATION: US OBSTETRICAL ULTRASOUND CLINICAL INFORMATION: Lower abdominal pain and cramping, positive hCG test. COMPARISON: None available. LMP: Unknown.. TECHNIQUE: Ultrasound of the maternal pelvis is performed using transabdominal and transvaginal transducers. Transvaginal imaging is performed due to inadequate visualization transabdominally. M-mode Doppler is also performed. FINDINGS: The endometrial stripe measures 12 mm in thickness. There is a small cystic area in the fundal endometrium, without good dual decidual reaction. This measures 0.2 cm in diameter and could potentially be an early gestational sac. No yolk sac or pole seen. Estimated gestational age by mean sac diameter would be for 4 weeks and 4 days. The uterus is otherwise normal. There are no myometrial abnormalities. MATERNAL ADNEXA: The right maternal ovary measures 4.5 x 3.1 x 2.5 cm. There is a corpus luteal cyst measuring 2.8 x 2.4 x 2.4 cm. The left maternal ovary measures 2.7 x 1.2 x 1.1 cm. Normal sonographic appearance. There is no significant maternal adnexal mass. Trace free pelvic fluid, likely physiologic. US/US OB pelvic and transvaginal IMPRESSION: 1. Questionable tiny gestational sac versus nonspecific cystic area within the fundal endometrium measuring 0.2 cm, correlating with estimated gestational age of 4 weeks and 4 days. No definite pole or yolk sac visualized. Continued follow-up recommended. 2. Normal ovaries bilaterally. 3. No adnexal masses. 4. Trace free pelvic fluid, likely physiologic. Electronically signed by: Nazario Hines MD 05/12/2025 04:29 PM EDT Dictated By: Nazario Hines MD Signed By: <Electronically signed by Nazario Hines MD in OV> 05/12/25 1629 DD/ 1541 TD/TT: 05/12/25 1601 Windows Application Packager: Procedure Note Donotuseinterpreter, Image - 05/12/2025 [place] [address] Ultrasound Report Signed Patient: Dara Huynh EMR #: [id number] : 1985Acct:[id number] Age/Sex: 39 / FADM Date: 05/12/25 Loc: HO.US Attending Dr: Rupal Carpio Ordering Physician: Rupal Carpio Date of Service: 05/12/25 Procedure(s): US OB pelvic and transvaginal Accession Number(s): [id number] cc: Rupal Carpio; KRISTINA GOULD NP EXAMINATION: US OBSTETRICAL ULTRASOUND CLINICAL INFORMATION: Lower abdominal pain and cramping, positive hCG test. COMPARISON: None available. LMP: Unknown.. TECHNIQUE: Ultrasound of the maternal pelvis is performed using transabdominal and transvaginal transducers. Transvaginal imaging is performed due to inadequate visualization transabdominally. M-mode Doppler is also performed. FINDINGS: The endometrial stripe measures 12 mm in thickness. There is a small cystic area in the fundal endometrium, without good dual decidual reaction. This measures 0.2 cm in diameter and could potentially be an early gestational sac. No yolk sac or pole seen. Estimated gestational age by mean sac diameter would be for 4 weeks and 4 days. The uterus is otherwise normal. There are no myometrial abnormalities. MATERNAL ADNEXA: The right maternal ovary measures 4.5 x 3.1 x 2.5 cm. There is a corpus luteal cyst measuring 2.8 x 2.4 x 2.4 cm. The left maternal ovary measures 2.7 x 1.2 x 1.1 cm. Normal sonographic appearance. There is no significant maternal adnexal mass. Trace free pelvic fluid, likely physiologic. US/US OB pelvic and transvaginal IMPRESSION: 1. Questionable tiny gestational sac versus nonspecific cystic area within the fundal endometrium measuring 0.2 cm, correlating with estimated gestational age of 4 weeks and 4 days. No definite pole or yolk sac visualized. Continued follow-up recommended. 2. Normal ovaries bilaterally. 3. No adnexal masses. 4. Trace free pelvic fluid, likely physiologic. Electronically signed by: Nazario Hines MD 05/12/2025 04:29 PM EDT RP Dictated By: Nazario Hines MD Signed By: <Electronically signed by Nazario Hines MD in OV> 05/12/25 1629 DD/ 1541 TD/TT: 05/12/25 1601 Windows Application Packager: us Rupal Carpio NP IMG US PROCEDURES Final Result * (ABNORMAL) POCT , urine manually resulted (05/12/2025 10:54 AM EDT) Preg Test, Ur Positive( A) Negative, Indeterminate, None Detected, Invalid, Specimen unsatisfactory for evaluation, Weakly Positive, 2+ Urine 05/12/2025 10:5 4 AM EDT Rupal Carpio NP POINT OF [...] Hepatitis A,B,C Profile (02/09/2025 11:05 AM EDT) Hepatitis A IgM Nonreactive Nonreactive [facility] Comment:IgM antibodies to MCCARTY V not detected; does not exclude earlyacute or recovered HAV infection. ~Hepatitis B Surface Antibody REACTIVE Nonreactive [facility] Comment:REACTIVE: > 11.99 mI U/mL Hepatitis B Core Antibody Nonreactive Nonreactive [facility] Hepatitis C Antibody Nonreactive Nonreactive [facility] Comment:Antibodies to HCV no t detected; does not exclude early acuteHCV infection. Hepatitis B Surface Ag Negative Negative [facility] Blood Venous blood specimen / Unknown 02/09/2025 11:05 AM EDT 02/09/2025 1:07 PM EDT Kristina Gould [facility] LAB BLOOD ORDERABLES Final Resul t [facility] [address] [place] [phone] * HIV-1/2 Antigen and Antibodies, Fourth Generation, with Reflexes (02/09/2025 11:05 AM EDT) HIV AB/AG Nonreactive Nonreactive [facility] Comment:HIV-1 p24 Ag and/or HIV-1/HIV-2 Ab not detected.A test result that is nonreactive does not exclude thepossibility of exposure to or infection with HIV-1 and/orHIV-2. Nonreactive results in this assay for individualswith prior exposure to HIV-1 and/or HIV-2 may be due toantigen and antibody levels that are below the limit ofdetection of this assay.The TX. com. cn HIV Ag/Ab Combo assay result andsupplemental assay results should be interpreted inconjunction with the patient's clinical presentation,history and other laboratory results. If the results areinconsistent with clinical evidence, additional testing issuggested to confirm the result. Blood Venous blood specimen / Unknown 02/09/2025 11:05 AM EDT 02/09/2025 1:07 PM EDT [facility] Judy CASILLAS LAB BLOOD ORDERABLES Final Resul t [facility] [address] [place] [phone] [phone] * Pap Smear (05/04/2019) Pap Negative for intraephithelial lesion or malignancy Negative for intraephithelial lesion or malignancy, Other HPV Undetected Undetected, Indeterminate, Quantitative, Not Detected Historical Provider HEALTH MAINTENANCE Final Result from Last 3 Months or Most Recently Relevant to Health Maintenance Insurance [facility] AD[facility] Care Teams Oracle Consultant Relationship Specialty Start Date End Date Kristina Gould ANP [address] [place] [address] PCP - General Family Medicine 07/08/21
--- OUTSIDE RECORDS SUMMARY | 2025-06-06 16:40 | XMS_ITS | Clinical Summary ---
Author Organization [facility] Address [address] [place] [address] Care Team Providers Care Cardiovascular Tech Name Role Phone John Doran MD Primary Care Provider [phone] Source Comments PLEASE NOTE, if this patient [...] for 84 days 84 Tablet 2 5 Active Active Problems No known active problems Encounters Date Type Department Care Team Description 03/09/2025 Interim Notes [address] [phone] John Doran MD from Last 3 Months [...] 3 - 19 + 3-dose series) 2005 [id number] ( season) 2024 01/13/2022, 01/02/2021, 12/12/2020 Alcohol and Drug Screen 11/16/2024 Depression Annual Screen 11/16/2024 Imm-Influenza (#1) 2025 09/26/2021, 08/28/2016 Annual Wellness (Adult): Ind [...] TRACHOMATIS RNA, TMA NOT DETECTED NOT DETECTED scrible NEISSERIA GONORRHOEAE RNA, TMA NOT DETECTED NOT DETECTED scrible COMMENT scrible CLINICAL INFORMATION See Note scrible Comment:Normal exam LMP See Note scrible Comment:11/15/2024 PREV. PAP See Note scrible Comment:NONE GIVEN PREV. BX See Note scrible Comment:NONE GIVEN SOURCE See Note scrible Comment:Cervix, Endocervix STATEMENT OF ADEQUACY See Note scrible Comment: Satisfactory for evaluation. Endocervical/transformation zone component present. INTERPRETATION/RESU LT See Note scrible Comment: Cytology Results: Negative for intraepithelial lesion or malignancy. INFECTION See Note scrible Comment: Shift in vaginal finesse suggestive of bacterial vaginosis. COMMENT See Note scrible Comment: This Pap test has been evaluated with computer assisted technology. STUDIO DESIGNER See Note [email or web address] Comment: RXB, CT(ASCP) CT screening location: [place] [address] COMMENT scrible HPV MRNA E6/E7 Not Detected Not Detected scrible Comment: Methodology: Risk Engineer-Mediated Amplification This assay detects E6/E7 viral messenger RNA (mRNA) from 14 high-risk HPV types (16,18,31,33,35,39,45,51,52,56,58,59,66,68). Cervical sources are required for HPV testing. If a vaginal source from a patient who has had a total hysterectomy with removal of cervix was submitted, please contact the testing laboratory for alternative testing options. For additional information, please refer to http://FashionGuide.Zattoo/faq/RNX067y8 (This link if provided for information/ educational purposes only.) Swab Cervix uteri structure / Unknown 11/29/2024 4:02 PM EST 11/30/2024 6:23 AM EST Narrative [facility] - 12/01/2024 3:07 PM EST SPLIT 11/29/2024 FROM [id number] EXPLANATORY NOTE: The Pap is a screening [...] test SurePath(TM) specimens have been determined by [facility]. The modifications have not been cleared or approved by the FDA. This assay has been validated pursuant to the CLIA regulations and is used for clinical purposes. For additional information, please refer to https://FashionGuide.Zattoo/faq/WMJ339 (This link is being provided for information/ educational purposes only.) John Doran MD LAB - PATHOLOGY AND CYTOLOGY AMB ULATORY Final Result [facility] [address] [place] [id number], [facility] [address] [phone] from Last 3 Months or Most Recently Relevant to Health Maintenance Insurance [facility] Care Teams Cardiovascular Tech Relationship Specialty Start Date End Date John Doran MD [address] [place] [address] PCP - General Family Medicine, Physician 03/09/25
--- OUTSIDE RECORDS SUMMARY | 2025-06-06 16:40 | XMS_ITS | Clinical Summary ---
Author Organization [facility] Address [address] [place] [address] Care Team Providers Care Senior Corporate Accountant Name Role Phone Marcelino Monae MD Primary Care Provider [phone] Social History Tobacco Use Types Packs/Day Years [...] Cervical Cancer Screening: P ap Smear 2007 HIV Screening 10/14/2022 Hepatitis C Screening 10/14/2022 Social Influencers of Health Screening 10/14/2022 COVID-19 Vaccine (1 - 2023-2 5 season) 2024 Depression Screening 11/16/2024 Influenza Vaccine (#1) 2025 HIB Vaccines Aged Out No longer [...] 5 Years) and At-Risk Patients (6 to 49 Years) Aged Out No longer eligible b ased on patient's age to complete this topic RSV Immunization Patients Un cherise 20 months Aged Out No longer eligible b ased on patient's age to complete this topic Varicella Vaccines Aged Out No longer eligible based on patient's age to complete this topic Care Teams Senior Corporate Accountant Relationship Specialty Start Date End Date Marcelino Monae MD [address] [place] [phone] PCP - General Internal Medicine 03/12/18
== END 2025-06-06 16:57 | disposition home or self-care (01) ==
LOC: HO.HGI 16:09
PROVIDERS: PCP Nurse Practitioner Primary Care; Visit Provider Nurse Practitioner
DX: A04.8 Other specified bacterial intestinal infections (principal); R11.2 Nausea with vomiting, unspecified; R63.4 Abnormal weight loss
CPT/HCPCS: 99213

== ENCOUNTER → 2025-06-06 16:08 | Outpatient (BNVA) | payer MEDICAID, SELFPAY | PROVIDERS: PCP Nurse Practitioner Primary Care; Visit Provider Nurse Practitioner | DX: R63.4 Abnormal weight loss (principal); A04.8 Other specified bacterial intestinal infections; R11.2 Nausea with vomiting, unspecified | CPT/HCPCS: 99212 ==